=== PATIENT | female | born 1985 | race Two or more races ===

== ENCOUNTER 2020-07-03 07:06 | Emergency (ER) | payer MEDICAID ==
[~2020-07-03] VITALS: Ht 157.5 cm; Wt 83.6 kg
[2020-07-03] MEDS ORDERED: SODIUM CHLORIDE FLUSH 10ML SYR IVF ONE (07:30)
[2020-07-03] MEDS ORDERED: ONDANSETRON 2MG/ML, 2ML IVPush ONE (07:30)
[2020-07-03] MEDS ORDERED: METOPROLOL 1 MG/ML, 5ML ONE (07:46)
[2020-07-03] MEDS ORDERED: ONDANSETRON 2MG/ML, 2ML ONE (07:46)
[2020-07-03 07:48] LABS: BASOPHILS % (AUTO) 1 % (0-1); EOSINOPHILS % (AUTO) 2 % (1-7); LYMPHOCYTES % (AUTO) 14 % (22-44); MEAN CORPUSCULAR HEMOGLOBIN 34.7 pg (27.0-34.8); MEAN CORPUSCULAR HGB CONC 35.4 g/dL (32.4-35.8); MEAN PLATELET VOLUME 7.2 fL (7.4-10.4); MONOCYTES % (AUTO) 6 % (2-9); NEUTROPHILS % (AUTO) 78 % (42-75); PLATELET COUNT 193 x10^3/uL (130-400); RED BLOOD COUNT 2.17 x10^6/uL (3.82-5.3); RED CELL DISTRIBUTION WIDTH 17.3 % (9.6-15.2)
--- NOTE | 2020-07-03 07:56 | NUR ---
PT MEDICATED PER EMAR FOR NAUSEA AND HYPERTENSION. HR 80'S POST BB. PT CO PADILLA. ERP AWARE
[2020-07-03 07:57] LABS: ALANINE AMINOTRANSFERASE 18 U/L (12-78); ALBUMIN 3.8 g/dL (3.4-5.0); ANION GAP 13 mmol/L (5-15); CALCIUM 9.6 mg/dL (8.5-10.1); CHLORIDE 91 mmol/L (98-107)
[2020-07-03] MEDS ORDERED: METOPROLOL SUCCINATE 100 MG TAB.ER.24H PO ONE (08:00)
[2020-07-03] MEDS ORDERED: METOPROLOL 1 MG/ML, 5ML IVPush ONE (08:00)
[2020-07-03 08:02] LABS: ALKALINE PHOSPHATASE 61 U/L (45-117); BILIRUBIN,TOTAL 0.4 mg/dL (0.2-1.0); TOTAL PROTEIN 7.6 g/dL (6.4-8.2); TROPONIN I 0.068 ng/mL (0.000-0.045)
[2020-07-03 08:22] LABS: MD NO
[2020-07-03] MEDS ORDERED: LORazepam 2 MG/ML, 1ML ONE (08:28)
[2020-07-03] MEDS ORDERED: LORazepam 2 MG/ML, 1ML IVPush ONE (08:30)
--- NOTE | 2020-07-03 08:32 | NUR ---
PT AMBULATED STEADILY TO RESTROOM TO PROVIDE UA. DENIES WEAKNESS/DIZZINESS UPON STANDING. STATES SHES "IRRITATED". PT EDUCATED TO POC (RX, LABS, POSSIBLE BLOOD TX) AND DEMONSTRATES UNDERSTANDING. PT MEDICATED PER EMAR
--- NOTE | 2020-07-03 08:42 | NUR ---
PT AWARE OF LOW H&H. PT STATES THAT HER HEMOGLOBIN IS BASELINE LOW, "ITS USUALLY 6.8" AND STATES THAT HER TRADE ANALYST GENERALLY "DOESN'T WANT ME TO GET TRANSFUSIONS". PT SCHEDULED FOR ENDOSCOPY/COLONOSCOPY 07/05 AT [facility] IN [place]. PT REQUESTING COVID TEST WO RESP S/S. PT STATES "THEY TESTED ME FOR MY PRE PROCEDURE- BUT NOW I TRAVELLED TO [place]". ERP AWARE. NO ORDERS RECEIVED FOR COVID SWAB.
[2020-07-03 09:03] LABS: MICROSCOPIC AUTO
[2020-07-03] MEDS ORDERED: CEFTRIAXONE PMX 1GM/50ML 50 ML IV ONE (09:30)
--- NOTE | 2020-07-03 09:31 | NUR ---
ERP AT BEDSIDE TO DISCUSS ADMIT. PT REFUSING ADMIT HER YOUNG DAUGHTER IS AT THE [place] ALONE.
[2020-07-03 09:35] VITALS: BP 136/90
[2020-07-03] MEDS ORDERED: CEFTRIAXONE PMX 1GM/50ML 50 ML ONE (09:37)
--- NOTE | 2020-07-03 10:21 | NUR ---
DC EDUCATION PROVIDED, PT DEMONSTRATES UNDERSTANDING. PT AMBULATED STEADILY TO DC WITH RN. TO AMBULATE TO CIRCUS CIRCUS.
== END 2020-07-03 10:23 | disposition home or self-care (01) ==
LOC: ED 09:41
DX: D64.9 Anemia, unspecified (principal); N30.01 Acute cystitis with hematuria; N18.30 Chronic kidney disease, stage 3 unspecified; R00.0 Tachycardia, unspecified; Z88.6 Allergy status to analgesic agent
CPT/HCPCS: 36415; 71045; 80053; 81001; 83735; 83880; 84100; 84484; 84703; 85025; 86850; 86900; 87086; 93005; 96365; 96375; 99285; J0696; J2060; J2405

== ENCOUNTER 2020-07-03 18:15 | Emergency (ER) | payer MEDICAID ==
[~2020-07-03] VITALS: Ht 157.5 cm; Wt 82.1 kg
--- NOTE | 2020-07-03 18:30 | NUR ---
therapeutic assistant: EKG done in triage
--- NOTE | 2020-07-03 18:30 | NUR ---
advertising coordinator: pt is on peritoneal dialysis and has peritonela dialysis cath in place pt also c/o palpitations
[2020-07-03] MEDS ORDERED: LORazepam 1MG TABLET PO ONE ×3 (19:00→23:00)
[2020-07-03] MEDS ORDERED: LORazepam 1MG TABLET ONE ×3 (19:01→22:58)
--- NOTE | 2020-07-03 19:14 | NUR ---
PT CAME IN CO OF SOB, CP, PADILLA X 1 WEEK. PT IS DIALYSIS PT. PT WAS SEEN EARLIER TODAY AND FOUND TO HAVE A UTI AND BE ANEMIC WITH A POSITIVE TROP. PT RESTING IN [facility]. ANXIOUS - MEDICATED PER JUL. EKG COMPLETE. CONNECTED TO ALL MONITORING EQUIPMENT
--- NOTE | 2020-07-03 19:32 | NUR ---
PT UP WALKING AROUND ROOM. STATES SHE "CANT SIT STILL. CAN YOU JUST SEDATE ME AND PUT ME TO SLEEP?" PT EDUCATED ON THAT SHE SHOULD REST IN THE GURNEY FOR HER SAFETY. PT VERBALIZED UNDERSTANDING
--- NOTE | 2020-07-03 20:24 | NUR ---
BEDSIDE. PT MEDICATED PER MAR
--- NOTE | 2020-07-03 21:25 | NUR ---
PT TAKING AT HOME AMLODIPINE - OK'D BY . THE PLAN IS TO WATCH HER AND SEE IF HER HR IMPROVES BEFORE POSSIBLE DC OR ADMIT
--- NOTE | 2020-07-03 21:57 | NUR ---
REPORT TO NYLA RENE.
--- NOTE | 2020-07-03 21:57 | NUR ---
REPORT RECIVED FROM VANDANA RENE
[2020-07-03 22:14] VITALS: BP 161/89
== END 2020-07-03 23:13 | disposition home or self-care (01) ==
LOC: ED 19:40
DX: F41.1 Generalized anxiety disorder (principal); I10 Essential (primary) hypertension; R07.89 Other chest pain; R06.02 Shortness of breath; R00.0 Tachycardia, unspecified
CPT/HCPCS: 36415; 85379; 93005; 99285